=== PATIENT | male | born 1950 | race Caucasian/White ===

== ENCOUNTER 2017-03-21 14:54 | Inpatient (IN) | payer MEDICARE, OTHER ==
[~2017-03-21] VITALS: Ht 185.4 cm; Wt 68.5 kg
[~2017-03-21 14:54] MED LIST: ADVAIR 250/501 EA INH; ALBUTEROL SULFAT3 M1 IH; AQUAPHOR1 OI1 TP; ARIXTRA2.5 MG/0.5 SC; B-1100 MG PO; COMBIVENT1 ARO IH; COUMADIN3 M1 PO; DILTIAZEM CD240 MG PO; DILTIAZEM HYDRO60 MG PO; FLOMAX0.4 MG PO; KEFLEX500 MG PO; MEGACE 40400 MG/10 PO; MOTRIN800 MG PO; MYCOSTATIN POWD15 GM PO; PROTONIX40 MG PO; SENSI-CARE PROT1 OI1 TP
[2017-03-21 14:59] VITALS: BP 144/94
[2017-03-21] MEDS ORDERED: ASPIR LOW81 MG PO (15:00)
[2017-03-21] MEDS ORDERED: FEOSOL325 MG PO (15:00)
[2017-03-21] MEDS ORDERED: NATURE'S BLEND F1 MG PO (15:01)
[2017-03-21] MEDS ORDERED: VITAMIN D50000 I3 PO (15:01)
[2017-03-21] MEDS ORDERED: LOPRESSOR50 M1 PO (15:01)
[2017-03-21] MEDS ORDERED: VIT B PO (15:02)
[2017-03-21] MEDS ORDERED: PRILOSEC20 M1 PO (15:02)
[2017-03-21] MEDS ORDERED: SENNA8.6 MG PO (15:02)
[2017-03-21] MEDS ORDERED: [UNRECOGNIZED DRUG - OTHER] PO (15:02)
[2017-03-21] MEDS ORDERED: MIRALAX17 GM/DOSE PO (15:02)
[2017-03-21] MEDS ORDERED: DUONEB 3 MG/3 ML3 M1 INH (15:03)
[2017-03-21] MEDS ORDERED: NITROGLYCERIN0.4 MG SL (15:03)
[2017-03-21 15:44] LABS: BASO % 0.4 % (0.0-1.0); EOS # 0.3 10*3/uL (0.0-0.4); EOS % 3.7 % (1.0-4.0); HEMATOCRIT 44.7 % (42.0-52.0); HEMOGLOBIN 14.1 g/dl (14.0-18.0); LYMPH # 1.4 10*3/uL (1.3-4.4); LYMPH % 20.4 % (27.0-41.0); MEAN CELL VOLUME 87.1 fl (80.0-94.0); MEAN CORPUSCULAR HGB 27.5 pg (27.0-31.0); MEAN CORPUSCULAR HGB CONC 31.5 g/dl (33.0-37.0); MEAN PLATELET VOLUME 9.1 fl (9.6-12.3); MONO # 0.6 10*3/uL (0.1-1.0); MONO % 8.4 % (3.0-9.0); NEUT # 4.5 10*3/uL (2.3-7.9); NEUT % 66.8 % (47.0-73.0); PLATELET COUNT AUTOMATED 193 10*3/uL (130-400); RED BLOOD COUNT 5.13 10*6/uL (4.50-5.90); RED CELL DISTRI WIDTH 22.4 % (0-14.5); WHITE BLOOD COUNT 6.8 10*3/uL (4.8-10.8)
[2017-03-21 15:52] LABS: PROTHROMBIN TIME 10.8 SECONDS (9.0-12.4)
[2017-03-21 16:04] LABS: ALBUMIN 3.3 gm/dl (3.1-4.5); ALKALINE PHOSPHATASE 78 U/L (45-117); BILIRUBIN, TOTAL 0.3 mg/dl (0.2-1.0); BUN 16 mg/dl (7-24); CARBON DIOXIDE 30 mmol/L (21-32); CHLORIDE 105 mmol/L (98-107); CPK 38 U/L (39-308); EST GLOM FILT AFRICAN AMERICAN > 60 ml/min; GLUCOSE 89 mg/dL (65-99); LDH 160 U/L (87-241); MAGNESIUM 1.6 mg/dL (1.5-2.1); POTASSIUM 4.1 mmol/L (3.5-5.1); SGOT/AST 24 IU/L (3-35); SGPT/ALT 31 U/L (12-78); SODIUM 139 mmol/L (136-145); TOTAL PROTEIN 7.7 gm/dL (6.4-8.2)
[2017-03-21 16:05] LABS: CKMB 1.6 ng/ml (0.5-3.6)
[2017-03-21 16:06] LABS: TROPONIN I < 0.015 ng/ml (<0.045)
[2017-03-21 17:40] LABS: LA>2 REFLEX 2 HR DRAW NOW
[2017-03-21 18:00] VITALS: BP 148/80
[2017-03-21 18:19] LABS: CKMB 1.7 ng/ml (0.5-3.6); CPK 42 U/L (39-308)
[2017-03-21 18:20] LABS: TROPONIN I < 0.015 ng/ml (<0.045)
[2017-03-21] MEDS ORDERED: COMBIVENT RESPIM4 GM INH (18:24)
[2017-03-21 20:00] VITALS: BP 143/78
[2017-03-21 22:58] LABS: BILIRUBIN NEGATIVE (NEGATIVE); BLOOD NEGATIVE (NEGATIVE); CLARITY CLEAR (CLEAR); COLOR YELLOW (YELLOW); GLUCOSE NEGATIVE (NEGATIVE); KETONE NEGATIVE (NEGATIVE); LEUKO ESTERASE NEGATIVE (NEGATIVE); NITRITE NEGATIVE (NEGATIVE); PROTEIN 2+ (NEGATIVE); SPECIFIC GRAVITY >= 1.030 (1.005-1.030); UROBILINOGEN 0.2 E.U./dl (0.2-1.0)
[2017-03-21 23:08] LABS: BACTERIA TRACE; URINE REFLEX COMMENT NO (NO)
[2017-03-22 00:24] VITALS: BP 114/66
[2017-03-22 00:39] LABS: CKMB 1.6 ng/ml (0.5-3.6); CPK 43 U/L (39-308); TROPONIN I < 0.015 ng/ml (<0.045)
[2017-03-22 06:10] LABS: BASO % 0.6 % (0.0-1.0); EOS # 0.3 10*3/uL (0.0-0.4); EOS % 5.3 % (1.0-4.0); HEMATOCRIT 41.4 % (42.0-52.0); HEMOGLOBIN 12.8 g/dl (14.0-18.0); LYMPH # 1.5 10*3/uL (1.3-4.4); LYMPH % 23.8 % (27.0-41.0); MEAN CELL VOLUME 87.2 fl (80.0-94.0); MEAN CORPUSCULAR HGB 26.9 pg (27.0-31.0); MEAN CORPUSCULAR HGB CONC 30.9 g/dl (33.0-37.0); MEAN PLATELET VOLUME 9.1 fl (9.6-12.3); MONO # 0.7 10*3/uL (0.1-1.0); MONO % 10.5 % (3.0-9.0); NEUT # 3.8 10*3/uL (2.3-7.9); NEUT % 59.6 % (47.0-73.0); PLATELET COUNT AUTOMATED 180 10*3/uL (130-400); RED BLOOD COUNT 4.75 10*6/uL (4.50-5.90); RED CELL DISTRI WIDTH 22.4 % (0-14.5); WHITE BLOOD COUNT 6.4 10*3/uL (4.8-10.8)
[2017-03-22 06:22] LABS: CKMB 1.6 ng/ml (0.5-3.6); CPK 39 U/L (39-308); TROPONIN I < 0.015 ng/ml (<0.045)
[2017-03-22 06:31] LABS: HEMOGLOBIN A1c 5.1 % (4.8-5.6)
[2017-03-22 06:35] LABS: PROTHROMBIN TIME 10.4 SECONDS (9.0-12.4)
[2017-03-22 06:39] LABS: ALBUMIN 2.9 gm/dl (3.1-4.5); BUN 19 mg/dl (7-24); CARBON DIOXIDE 30 mmol/L (21-32); CHLORIDE 108 mmol/L (98-107); CHOLESTEROL 137 mg/dL (<200); EST GLOM FILT AFRICAN AMERICAN > 60 ml/min; GLUCOSE 89 mg/dL (65-99); MAGNESIUM 1.3 mg/dL (1.5-2.1); PHOSPHOROUS 3.4 mg/dL (2.5-4.9); POTASSIUM 4.6 mmol/L (3.5-5.1); SGOT/AST 22 IU/L (3-35); SGPT/ALT 26 U/L (12-78); SODIUM 141 mmol/L (136-145); TOTAL PROTEIN 6.9 gm/dL (6.4-8.2); TRIGLYCERIDES 75 mg/dl (<150); VLDL CHOLESTEROL 15 mg/dL (6-40)
[2017-03-22 06:46] LABS: ALKALINE PHOSPHATASE 67 U/L (45-117); BILIRUBIN, TOTAL 0.3 mg/dl (0.2-1.0); FREE T4 1.18 ng/dl (0.76-1.46); HDL CHOLESTEROL 56 mg/dl (40-60); LDL CHOLESTEROL 66 mg/dL (9-159)
[2017-03-22 07:42] LABS: FOLIC ACID 22.68 ng/mL (>5.38); VITAMIN D, 25-HYDROXY 50.5 ng/mL (30-100)
[2017-03-22 08:00] VITALS: BP 152/87
[2017-03-22 16:00] VITALS: BP 121/71
[2017-03-22 20:00] VITALS: BP 121/66
[2017-03-23] VITALS: BP 127/75
[2017-03-23 08:00] VITALS: BP 121/81
[2017-03-23 12:00] VITALS: BP 121/83
[2017-03-23 16:00] VITALS: BP 120/67
[2017-03-23 20:00] VITALS: BP 116/75
[2017-03-24] VITALS: BP 111/78
[2017-03-24 08:00] VITALS: BP 127/72
[2017-03-24 16:00] VITALS: BP 108/70; BP 146/86
[2017-03-24 20:00] VITALS: BP 130/70
[2017-03-25] VITALS: BP 133/74
[2017-03-25 07:06] LABS: BASO % 0.3 % (0.0-1.0); EOS # 0.5 10*3/uL (0.0-0.4); EOS % 6.5 % (1.0-4.0); HEMATOCRIT 37.2 % (42.0-52.0); HEMOGLOBIN 11.9 g/dl (14.0-18.0); LYMPH # 1.4 10*3/uL (1.3-4.4); LYMPH % 20.3 % (27.0-41.0); MEAN CELL VOLUME 87.3 fl (80.0-94.0); MEAN CORPUSCULAR HGB 27.9 pg (27.0-31.0); MEAN PLATELET VOLUME 9.5 fl (9.6-12.3); MONO # 0.7 10*3/uL (0.1-1.0); MONO % 9.6 % (3.0-9.0); NEUT # 4.4 10*3/uL (2.3-7.9); NEUT % 63.2 % (47.0-73.0); PLATELET COUNT AUTOMATED 176 10*3/uL (130-400); RED BLOOD COUNT 4.26 10*6/uL (4.50-5.90); RED CELL DISTRI WIDTH 21.7 % (0-14.5); WHITE BLOOD COUNT 6.9 10*3/uL (4.8-10.8)
[2017-03-25 07:38] LABS: BUN 19 mg/dl (7-24)
[2017-03-25 07:40] LABS: EST GLOM FILT AFRICAN AMERICAN > 60 ml/min
[2017-03-25 08:00] VITALS: BP 145/76
[2017-03-25 12:00] VITALS: BP 114/74
[2017-03-25 16:00] VITALS: BP 117/63
[2017-03-25 20:00] VITALS: BP 116/67
[2017-03-26] VITALS: BP 120/70
[2017-03-26 08:00] VITALS: BP 122/76
[2017-03-26 12:00] VITALS: BP 135/69
[2017-03-26] MEDS ORDERED: DOXYCYCLINE100 MG PO (15:26)
[2017-03-26 16:00] VITALS: BP 145/88
== END 2017-03-26 17:06 | disposition home health service (06) | DRG 394 ==
LOC: ED 14:54 → 4E 16:53 → EDHOLD 16:53 → 4E 17:31
PROVIDERS: Internal Medicine; Physician Assistant
DX: K94.02 Colostomy infection (principal); L03.311 Cellulitis of abdominal wall; E87.2 Acidosis; E44.0 Moderate protein-calorie malnutrition; I50.9 Heart failure, unspecified; I48.91 Unspecified atrial fibrillation; J44.9 Chronic obstructive pulmonary disease, unspecified; E83.42 Hypomagnesemia; Z68.1 Body mass index [BMI] 19.9 or less, adult; Y83.8 Other surgical procedures as the cause of abnormal reaction of the patient, or of later complication, without mention of misadventure at the time of the procedure; I25.2 Old myocardial infarction; Z86.718 Personal history of other venous thrombosis and embolism; Z87.81 Personal history of (healed) traumatic fracture; Z90.49 Acquired absence of other specified parts of digestive tract; Z79.82 Long term (current) use of aspirin; Z82.49 Family history of ischemic heart disease and other diseases of the circulatory system; Z83.3 Family history of diabetes mellitus; Z79.899 Other long term (current) drug therapy; Z87.891 Personal history of nicotine dependence

== ENCOUNTER → 2018-05-17 | Outpatient (CLI) | payer OTHER ==
[~2018-05-17] MED LIST changes: +ASPIR LOW81 MG PO; +COMBIVENT RESPIM4 GM INH; +DOXYCYCLINE100 MG PO; +DUONEB 3 MG/3 ML3 M1 INH; +FEOSOL325 MG PO; +LOPRESSOR50 M1 PO; +MIRALAX17 GM/DOSE PO; +NATURE'S BLEND F1 MG PO; +NITROGLYCERIN0.4 MG SL; +PRILOSEC20 M1 PO; +SENNA8.6 MG PO; +VIT B PO; +VITAMIN D50000 I3 PO; +[UNRECOGNIZED DRUG - OTHER] PO
== END | disposition home or self-care (01) ==
LOC: CT 13:49
DX: J43.9 Emphysema, unspecified (principal); Z85.038 Personal history of other malignant neoplasm of large intestine